=== PATIENT | female | born 2000 | race Caucasian/White ===

== ENCOUNTER 2023-06-09 18:57 | Emergency (ER) | payer OTHER ==
[2023-06-09 19:01] VITALS: BP 104/64; PULSE 83; RESP 18; TEMP 98.9; BMI 26.4
[2023-06-09] MEDS ORDERED: SODIUM CHLORIDE 1,000 ML IV STA (19:53)
[2023-06-09] MEDS ORDERED: ONDANSETRON 4 MG/2 ML VIAL IVPUSH ONE (19:53)
[2023-06-09] MEDS ORDERED: ACETAMINOPHEN 1000 MG/100 ML BAG IVPB ONE (19:53)
[2023-06-09] MEDS ORDERED: FAMOTIDINE 20 MG/50 ML IVPB 20 MG/50 ML MG IVPB ONE ×2 (19:53→20:12)
[2023-06-09] MEDS ORDERED: ACETAMINOPHEN INJECTION 100 ML IVPB ONE (20:12)
[2023-06-09] MEDS ORDERED: ONDANSETRON 4 MG/2 ML VIAL ONE (20:12)
[2023-06-09 20:59] LABS: BASO % 0.6 % (0-2.0); EOS % 3.1 % (0-4.5); HCG,QUALITATIVE URINE Positive; HEMOGLOBIN 12.6 GM/dL (10.7-15.3); LYMPH % 23.3 % (8-40); MCH 28.5 pg (25.7-33.7); MEAN CELL VOLUME 83.8 fl (80-96); MEAN PLT VOLUME 7.8 fl (7.5-11.1); MONO % 7.4 % (3.8-10.2); NEUT % 65.6 % (42.8-82.8); PLATELET COUNT 295 10^3/uL (134-434); RBC 4.42 M/mm3 (3.60-5.2); RDW 13.5 % (11.6-15.6)
[2023-06-09 21:00] LABS: PH,URINE 7.5 (5.0-8.0); URINE APPEARANCE CLEAR; URINE BILIRUBIN NEGATIVE (NEGATIVE); URINE COLOR YELLOW; URINE GLUCOSE (UA) NEGATIVE (NEGATIVE); URINE KETONE NEGATIVE (NEGATIVE); URINE LEUK ESTERASE NEGATIVE (NEGATIVE); URINE NITRITE NEGATIVE (NEGATIVE); URINE PROTEIN NEGATIVE (NEGATIVE); URINE UROBILINOGEN 0.2 mg/dL (0.2-1.0)
[2023-06-09 21:28] LABS: POTASSIUM 3.7 mmol/L (3.5-5.1)
[2023-06-09 21:31] LABS: ALBUMIN 3.9 g/dl (3.4-5.0); CALCIUM 8.7 mg/dL (8.5-10.1)
[2023-06-09 21:32] LABS: BLOOD UREA NITROGEN 11.9 mg/dL (7-18)
[2023-06-09 21:34] LABS: CREATININE 0.7 mg/dL (0.55-1.3)
[2023-06-09 21:36] LABS: BILIRUBIN,TOTAL 0.2 mg/dL (0.2-1)
== END 2023-06-10 01:21 | disposition home or self-care (01) ==
LOC: JER 18:57
PROC: 3E033GC Introduction of Other Therapeutic Substance into Peripheral Vein, Percutaneous Approach (ICD-10-PCS; principal; 2023-06-09)
PROC: 3E033GC Introduction of Other Therapeutic Substance into Peripheral Vein, Percutaneous Approach (ICD-10-PCS; 2023-06-09)
PROC: 3E033NZ Introduction of Analgesics, Hypnotics, Sedatives into Peripheral Vein, Percutaneous Approach (ICD-10-PCS; 2023-06-09)
PROC: 3E0337Z Introduction of Electrolytic and Water Balance Substance into Peripheral Vein, Percutaneous Approach (ICD-10-PCS; 2023-06-09)
DX: O21.9 Vomiting of pregnancy, unspecified (principal); O26.891 Other specified pregnancy related conditions, first trimester; R10.31 Right lower quadrant pain; Z3A.01 Less than 8 weeks gestation of pregnancy
CPT/HCPCS: 36415; 76817-TC; 80053; 81003; 83690; 84702; 84703; 85025; 87086; 99284-25

== ENCOUNTER 2023-12-08 11:10 | Emergency (ER) | payer OTHER ==
[2023-12-08 11:28] VITALS: BMI 30.2
[2023-12-08 12:07] VITALS: BP 125/79; PULSE 82; RESP 20; TEMP 98.1
== END 2023-12-08 12:40 | disposition home or self-care (01) ==
LOC: JER 11:10
DX: O99.891 Other specified diseases and conditions complicating pregnancy (principal); R55 Syncope and collapse; O26.893 Other specified pregnancy related conditions, third trimester; R10.30 Lower abdominal pain, unspecified; R11.0 Nausea; Z3A.32 32 weeks gestation of pregnancy
CPT/HCPCS: 93005; 93010; 99283-25